=== PATIENT | male | born 1950 | race Caucasian/White ===

== ENCOUNTER → 2018-05-21 10:41 | Outpatient (CLI) | payer MEDICARE ==
[~2018-05-21] VITALS: Ht 182.9 cm; Wt 113.6 kg
--- NOTE | ~2018-05-21 | OP ---
PATIENT NAME: EMMETT WHEATLEY MEDICAL RECORD: [id number] :50 LOCATION:D.CAT ADMISSION DATE: SURGEON: GINA LEÓN MD DATE OF OPERATION: 05/21/2018 PROCEDURES: Left heart catheterization, selective coronary angiography, right femoral artery approach. CATHETERS: A 5-Libyan sheath, 5/4 left and right Paulina, 5/4 pig. The procedure was well tolerated. The patient was returned to the hernandez. Sheath was removed. ExoSeal device was placed. FINDINGS: Left ventriculography in 30-degree RODRIGUEZ view: Normal wall motion and normal systolic function. CORONARY ANATOMY: LEFT MAIN: Left main is free of disease. LAD: LAD has a tight stenosis of 90% at the takeoff of the first diagonal. CIRCUMFLEX: Fills for a short period of time and totally occluded. RIGHT CORONARY ARTERY: Fills to half way point and totally occluded. BYPASS GRAFTS: 1. Saphenous vein graft to right is widely patent throughout its course without evidence of postanastomotic stenosis. 2. Saphenous vein graft to circumflex is widely patent throughout its course without evidence of postanastomotic stenosis. 3. PABON to LAD: This PABON fills to about half-way point and becomes atretic vessel with no distal runoff. IMPRESSION: Recurrent angina secondary loss of PABON graft. PLAN: Intervention to LAD momentarily. DESCRIPTION OF PROCEDURE: A 5-Libyan sheath was exchanged to 6-Libyan sheath. An XB LAD 3.5 guiding catheter provided good guide catheter support followed by 300-cm Whisper wire was placed across the tightly occluded LAD down a portion of this vessel. Preformed balloon was 2.5 x 12 Esmeralda balloon up to 10 atmospheres. Next, stent deployed was a 3.0 x 18 [place] drug-eluting stent up to 14 atmospheres for 45 seconds. Final injection shows excellent resolution of tight 89% stenosis of the LAD. No significant residual. PIEDAD flow was 3 throughout the procedure. Integrilin was used during the case. Sheath was closed with ExoSeal device. TRANSINT:[id number] Voice Confirmation ID: [id number] DOCUMENT ID: [id number] OPERATIVE REPORT [id number] EMMETT WHEALTEY GINA LEÓN MD at 1305 CC: [id number] DICTATION DATE: 05/21/18 8591 FOUNDATION DIGGER: 05/21/18 1752 DEP CLI 05/21/18 [facility] [address] [facility] [place] [address]
--- NOTE | ~2018-05-21 | HEMODYNAMI ---
PATIENT:EMMETT WHEATLEY MEDICAL RECORD: [id number] : 50 LOCATION:D.CAT ADMISSION DATE: 05/21/18 Generatedon:05/21/201813:49 Patient name: EMMETT WHEATLEY Patient #: [id number] SSN: DO B: 1950 Date of study: 05/21/2018 Page: Of Hemodynamic Procedure Report Patient Data Patient Demographics Procedure consent was obtained First Name: EMMETT Gender: Male Last Name: DIONI : 1950 Patient #: [id number] Age: 67 year(s) Race: Unknown Additional ID: [id number] Contact details Address: [address] [place] [address] [place] State: [place] City: [place] Zip code: [address] Past Medical History Allergies Allergen Reaction Date Comments Reported Other allergy 05/21/2018 LISINOPRIL, ASPARTANE, METFORMIN, PAULETTE INHIBITORS Admission Admission Data Admission Date: 05/21/2018 Admission Time: 10:41 Height (in.): 70 BSA: 2.29 (m2) Height (cm.): 177.8 BMI: 35.87 (kg/m2) Weight (lbs.): 250 Weight (kg.): 113.4 Procedure Procedure Types Cath Procedure Diagnostic Procedure [facility] w/Coronaries Sedation Charges Moderate Sedation up to 15 minutes PCI Procedure Coronary Stent Coronary Stent Initial Procedure Description Procedure Date Procedure Date: 05/21/2018 Procedure Start Time: 13:25 Procedure End Time: 13:47 Procedure Staff Name Function Bruna Jung RT Monitor Faviola Echavarria RN Nurse Luis F Thompson RT Scrub Juan Panchal RN Director Marketing Analytics Zeke Howard MD Performing Physician Procedure Data Cath Procedure Fluoroscopy Diagnostic fluoroscopy Total fluoroscopy Time: 4.6 time: 4.6 min min Diagnostic fluoroscopy Total fluoroscopy dose: 333 dose: 333 mGy mGy Contrast Material Contrast Material Type Amount (ml) Isovue 300 126 Entry Location Entry Primary Successful Side Size Upsize Upsize Entry Closure Succes sful Closure Location (Fr) 1 (Fr) 2 (Fr) Remarks Device Remarks Femoral Right 5 Fr 6 Fr Exoseal artery Short Estimated blood loss: 10 ml Diagnostic catheters Device Type Used For End Catheter Placement MULTIPACK JL 4.0 5Fr Procedure catheter MULTIPACK 3DRC 5Fr Procedure catheter MULTIPACK Pigtail 5 Fr Procedure catheter Procedure Complications No complications Procedure Medications Medication Administration Route Dosage Oxygen etCO2 Nasal cannula 2 l/min Lidocaine 2% added to field 20 Heparin Flush Bag added to field 2 bags (1000units/500ml NS) 0.9% NaCl I.V. 100 ml/hr Versed I.V. 1 mg Fentanyl I.V. 50 mcg Versed I.V. 1 mg Fentanyl I.V. 50 mcg Heparin Bolus I.V. 4000 units Integrilin (Bolus I.V. 10.2 ml 2mg/ml) Fentanyl I.V. 50 mcg Plavix P.O. 600 mg Hemodynamics Rest BSA: 2.29 (m2) O2 Consumption: Estimated: 275.24 (ml/min) O2 Consumption indexed : Estimated:120.19 (ml/min/m) Heart Rate: 81 (bpm) Pressure Samples Time Site Value (mmHg) Purpose Heart Use Rate(bpm) 13:32 LV 155/19,24 Snapshot 100 13:32 AO 152/68(104) Pullback 98 Gradients Valve Time Site Site 2 Mean SEP/DFP Peak To Heart Use 1 (mmHg) (sec/min) Peak Rate (mmHg) (bpm) Aortic 13:32 LV AO 98 152/68(104) Snapshots Pre Cath Intra NCS Post Cath Vital Signs Time Heart Resp SPO2 etCO2 NIBP (mmHg) Rhythm Pain Sedation Rate (ipm) (%) (mmHg) Status Level (bpm) 13:02:50 95 14 98 35.9 171/83(113) NSR 0 (11) 10(A) , No pain 13:07:17 70 16 98 35.9 166/90(120) NSR 0 (11) 10(A) , No pain 13:11:41 91 12 97 38.1 163/94(125) NSR 0 (11) 10(A) , No pain 13:16:09 87 14 93 38.9 145/90(120) NSR 0 (11) 10(A) , No pain 13:21:37 92 15 95 23.2 148/86(126) NSR 0 (11) 9(A) , No pain 13:26:03 95 14 98 35.2 155/87(125) NSR 0 (11) 9(A) , No pain 13:30:31 99 15 98 33.7 160/80(134) NSR 0 (11) 9(A) , No pain 13:35:00 99 16 99 35.9 154/86(113) NSR 0 (11) 9(A) , No pain 13:39:22 68 14 98 32.9 142/86(129) NSR 0 (11) 9(A) , No pain 13:43:46 103 18 99 33.7 160/87(119) NSR 0 (11) 10(A) , No pain Medications Time Medication Route Dose Verified Delivered Reason Notes Effectiveness by by 13:04:54 Oxygen etCO2 2 Zeke Reneeie used for Nasal l/min St Efraín Echavarria RN procedure cannula 13:05:04 Lidocaine 2% added 20ml Zeke Bazziory for local to vial [facility] anesthetic field MD VALENZUELA 13:05:55 Heparin Flush added 2 Zeke Zeke used for Bag to bags [facility] procedure (1000units/500ml field MD VALENZUELA NS) 13:06:05 0.9% NaCl I.V. 100 Zeke Salmeron Per physician ml/hr St Efraín Echavarria RN, MD 13:18:15 Versed I.V. 1 mg Zeke Duranie for sedation St Efraín Echavarria RN, MD 13:18:22 Fentanyl I.V. 50 Zeke Duranie for sedation jaron Ann RN, MD 13:26:22 Versed I.V. 1 mg Zeke Salmeron for sedation St Efraín Echavarria RN, MD 13:26:27 Fentanyl I.V. 50 Zeke Duranie for sedation mcg [facility] Efraín Echavarria RN, MD 13:35:24 Heparin Bolus I.V. 4000 Zeke Duranie for verif ied units St Efraín Echavarria RN anticoagulation with dr MD klein 13:37:48 Integrilin I.V. 10.2 Zeke Salmeron for Waste d (Bolus 2mg/ml) ml St Efraín Echavarria RN antiplatelet 9.8 ml therapy of vial 13:40:17 Fentanyl I.V. 50 Zeke Duranie for sedation jaron Ann RN, MD 13:48:39 Plavix P.O. 600 [address] for mg [facility] Efraín Echavarria RN antiplatelet therapy Procedure Log Time Note 12:40:34 Juan Panchal RN sent for patient. Start room use. 12:51:35 Time tracking: Regular hours (M-F 7:00 - 5:00) 12:51:39 Plan of Care:Hemodynamics will remain stable., Cardiac rhythm will remain stable., Comfort level will be maintained., Respiratory function will remain adequate., Patient/ family verbilizes understanding of procedure., Procedure tolerated without complication., Recovers from procedure without complications.. 12:58:00 Patient received from Pre/Post Procedure Room to CCL 3 Alert and oriented. Tansferred to table in Supine position. 12:58:02 Warm blankets applied, and severiano hugger turned on for patient comfort. 12:58:02 Correct patient and procedure confirmed by team. 12:58:03 Signed procedure consent form obtained from patient. 12:58:04 ECG and BP/O2 sat monitors applied to patient. 13:01:24 Vital chart was started 13:04:54 Oxygen 2 l/min etCO2 Nasal cannula was administered by Faviola Ehcavarria RN; used for procedure; 13:05:04 Lidocaine 2% 20ml vial added to field was administered by Zeke Howard MD; for local anesthetic; 13:05:49 Baseline sample Acquired. 13:05:53 Rhythm: atrial fibrillation 13:05:54 Full Disclosure recording started 13:05:55 Heparin Flush Bag (1000units/500ml NS) 2 bags added to field was administered by Zeke Howard MD; used for procedure; 13:06:01 H&P Date Dictated: 04/29/2018 Within 30 days and on chart., H&P Addendum completed by physician on day of procedure. (MUST COMPLETE FOR ALL OUTPATIENTS). 13:06:05 0.9% NaCl 100 ml/hr I.V. was administered by Faviola Echavarria RN; Per physician; 13:10:05 Pre-procedure instructions explained to patient. 13:10:05 Pre-op teaching completed and patient verbalized understanding. 13:10:07 Family in patients room. 13:10:08 Patient NPO since Midnight. 13:10:30 Patient allergic to Other allergyLISINOPRIL, ASPARTANE, METFORMIN, PAULETTE INHIBITORS 13:10:32 Is the patient allergic to Iodine/contrast media? No. 13:10:33 Is patient on blood thinner?Yes 13:10:36 ACC The patient was administered the following blood thiners within the last 24 hours: ACCAspirin 13:10:39 Patient diabetic? Yes. 13:10:40 If diabetic: On Metformin? No 13:10:42 Previous problem with sedation/anesthesia? No ? 13:10:43 Snore? Yes 13:10:44 Sleep apnea? No 13:10:45 Deviated septum? No 13:10:45 Opens mouth fully? Yes 13:10:46 Sticks out tongue? Yes 13:10:48 Airway obstruction? Yes COPD 13:10:52 Dentures? Yes TIGHT 13:10:55 Pre procedure: right dorsailis pedis pulse 2+ Normal; easily identifiable; not easily obliterated 13:10:59 Patient pain scale 0/10 ?. 13:11:03 IV patent on arrival in left hand with 0.9% NaCl at [facility]. 13:11:15 Right groin area was prepped with chlora-prep and draped in sterile fashion 13:11:16 Alarms reviewed by R. N. 13:11:16 Sharps counted by scrub and verified by R.N. 13:11:19 Use device set Femoral Dx 13:11:20 ACIST Syringe (99106) opened to sterile field. 13:11:21 Bag Decanter (2002S) opened to sterile field. 13:11:22 ACIST Hand Control (77273) opened to sterile field. 13:11:22 ACIST Manifold (23755) opened to sterile field. 13:11:24 Tegaderm 4 x 4 (1626W) opened to sterile field. 13:11:26 Medline Cath Pack ([id number]) opened to sterile field. 13:11:26 DIAGNOSTIC WIRE .035 260cm J wire (629717) opened to sterile field. 13:11:28 DIAGNOSTIC Multipack 5Fr catheter set (XB1167) opened to sterile field. 13:11:31 SHEATH Prelude 5Fr 0.035 (GRN-0P-90-035) opened to sterile field. 13:12:07 Patient Height : 70 inches 13:12:11 Patient Weight : 250 lbs 13:17:58 --------ALL STOP TIME OUT------ 13:17:59 Final Timeout: patient, procedure, and site verified with staff and physician. All members of the team are in agreement. 13:18:01 Right groin site verified by team. 13:18:03 Physical assessment completed. ASA score P 2 - A patient with mild systemic disease as per Zeke Howard MD. 13:18:10 Sedation plan: IV Moderate Sedation Medication:Versed, Fentanyl 13:18:15 Versed 1 mg I.V. was administered by Faviola Echavarria RN; for sedation; 13:18:16 Zero performed for pressure channel P1 13:18:22 Fentanyl 50 mcg I.V. was administered by Faviola Echavarria RN; for sedation; 13:25:09 Procedure started. 13:25:17 Local anesthetic to right femoral artery with Lidocaine 2% by Zeke Howard MD.INITIAL ACCESS ONLY 13:26:18 A 5 Fr sheath was inserted into the Right Femoral artery 13::22 Versed 1 mg I.V. was administered by Faviola Echavarria RN; for sedation; 13::23 A MULTIPACK JL 4.0 5Fr catheter was advanced over the wire and used for Procedure. 13:26:27 Fentanyl 50 mcg I.V. was administered by Faviola Echavarria RN; for sedation; 13:27:57 LCA angiography performed. 13:28:01 Catheter removed. 13:28:08 A MULTIPACK 3DRC 5Fr catheter was advanced over the wire and used for Procedure. 13:29:20 RCA angiography performed. 13:29:36 SVG to RCA angiography performed. 13:29:57 SVG to Circ angiography performed. 13:31:15 PABON CLOSED 13:31:24 Catheter removed. 13:31:28 A MULTIPACK Pigtail 5 Fr catheter was advanced over the wire and used for Procedure. 13:32:00 LV gram done using RODRIGUEZ 13:32:04 Injector settings: Ml/sec: 10, Volume: 20, 13:32:37 LV hemodynamics recorded. 13:32:45 EF : 55 % 13:32:57 Catheter removed. 13:33:20 SHEATH 6FR Linneus (YMW684) opened to sterile field. 13:34:48 Sheath upsized to a 6 Fr Short. 13:34:53 INFLATOR Merit BasixCompak (JG8347) opened to sterile field. 13:34:57 WHISPER 300cm guide wire ([id number]) opened to sterile field. 13:35:02 GUIDE 6FR XBLAD 3.5 catheter ([id number]) opened to sterile field. 13:35:12 6 Fr XBLAD 3.5 guide catheter was inserted over the wire 13:35:24 Heparin Bolus 4000 units I.V. was administered by Faviola Echavarria RN; for anticoagulation; verified with dr klein 13:37:03 WHISPER 300 wire advanced. 13:37:48 Integrilin (Bolus 2mg/ml) 10.2 ml I.V. was administered by Faviola Echavarria RN; for antiplatelet therapy; Wasted 9.8 ml of vial 13:38:33 Wire advanced across lesion. 13:39:18 Inflate balloon Inflation number: 1 A EMERGE OTW 3.0 x 12 balloon ([id number]) was prepped and advanced across the Prox LAD, then inflated to 12 MIKE for 0:00 (min:sec). 13:39:37 Balloon removed over the wire. 13:40:17 Fentanyl 50 mcg I.V. was administered by Faviola Echavarria RN; for sedation; 13:42:01 Place stent Inflation Number: 2 A GLYNN OTW 3.0 x 18 stent ([id number]) was prepped and advanced across the Prox LAD. The stent was deployed at 14 MIKE for 0:15 (min:sec). 13:42:22 Stent catheter was removed intact over wire. 13:42:23 Wire removed. 13:42:23 Guide catheter removed. 13:42:46 EXOSEAL 6Fr (EX600) opened to sterile field. 13:43:15 Sheath removed intact; hemostasis achieved with Exoseal to the Right Femoral artery. 13:43:56 Procedure ended.(Physican Out) 13:44:52 Fluoroscopy time 04.60 minutes. 13:44:57 Fluoroscopy dose: 333 mGy 13:44:57 Flurop Dose total: 333 13:45:01 Contrast amount:Isovue 300 126ml. 13:45:02 Sharps counted by scrub and verified by R.N. 13:45:05 Post-op/insertion site Right Femoral artery dressed using a 4 x 4 and Tegaderm. 13:45:08 Post right femoral artery:stable, soft, clean and dry 13:45:15 Post-procedure physical assessment completed. ASA score P 3 - A patient with severe systemic disease as per Zeke Howard MD. 13:45:18 Post procedure rhythm: unchanged. 13:45:21 Estimated blood loss: 10 ml 13:45:22 Post procedure instruction explained to patient.Patient verbalizes understanding. 13:45:22 Patient needs reinforcement of post procedure teaching. 13:45:50 Procedure type changed to Cath procedure, Diagnostic procedure, LHC, LHC w/Coronaries, Sedation Charges, Moderate Sedation up to 15 minutes, PCI procedure, Coronary Stent, Coronary Stent Initial 13:46:55 Procedure and supply charges have been captured, reviewed, submitted and are correct. 13:46:58 Procedure Complication : No complications 13:47:00 Vital chart was stopped 13:47:00 See physician's report for complete and final results. 13:47:02 Report given to Pre/Post Procedure Room. 13:47:04 Patient transfered to Pre/Post Procedure Room with Bed. 13:47:06 Procedure ended. 13:47:06 Full Disclosure recording stopped 13:47:11 End room use (Document Last) 13:48:39 Plavix 600 mg P.O. was administered by Faviola Echavarria RN; for antiplatelet therapy; Intervention Summary Intervention Notes Time ActionType Lesion and Equipment Action# Pressure Duration Attributes Used 13:39:18 Inflate Prox LAD EMERGE OTW 1 12 00:00 balloon 3.0 x 12 balloon ([id number]) 13:42:01 Place stent Prox LAD GLYNN OTW 3.0 2 14 00:15 x 18 stent ([id number]) Device Usage Item Name Manufacture Quantity Catalog Number Hospital Part Current Minimal Lot# / Charge Number Stock Stock Serial# Code ACIST Syringe Acist 1 10449 739558 342821 129805 20 (43639) Medical [employer] Inc Bag Decanter Microtek 1 2001S 006146 12338 778273 5 (2001S) Medical Inc. ACIST Hand Acist 1 76317 163313 946616 137907 5 Control (15046) Medical Systems Inc ACIST Manifold Acist 1 14541 326266 823018 069441 5 (70217) Medical Systems Inc Tegaderm 4 x 4 3M 1 1626W 107638 403226 263610 5 (1626W) Medline Cath Medline 1 [id number] 943938 43639 059890 5 Pack ([id number]) DIAGNOSTIC WIRE St Bryant 1 926762 564835 826595 093590 30 .035 260cm J wire (307109) DIAGNOSTIC Cardinal 1 RA3932 887151 00818 758362 30 Multipack 5Fr Health catheter set (IL8201) SHEATH Prelude Merit 1 FHC-2T-44-035 314082 271882 884625 5 5Fr 0.035 Medical (KOZ-6R-44-035) MULTIPACK JL Cardinal 1 801690 5 4.0 5Fr Health catheter MULTIPACK 3DRC Cardinal 1 709551 5 5Fr catheter Health MULTIPACK Cardinal 1 400750 5 Pigtail 5 Fr Health catheter SHEATH 6FR Terumo 1 KMS275 207800 310958 569498 40 Linneus (ORF466) INFLATOR Merit Merit 1 KU8886 225506 544767 951970 15 BasixCompak Medical (CX6972) WHISPER 300cm Guzman 1 [id number] 169800 018500 937784 5 guide wire Vascular (5313598LP) GUIDE 6FR XBLAD Cardinal 1 [id number] 338849 150381 361020 10 3.5 catheter Health (93839670) EMERGE OTW 3.0 Mims 1 [id number] 171108 483062 877615 5 [id number] x 12 balloon Scientific ([id number]) GLYNN OTW 3.0 x Medtronic 1 [id number] 102078 6474817 678235 5 [id number] 18 stent ([id number]) EXOSEAL 6Fr Cardinal 1 EX600 172030 671142 323821 10 (EX600) Health Signature Audit [place] Stage Time Signature Unsigned Intra-Procedure 05/21/2018 Bruna Jung 1:49:25 PM RT(R) Signatures Monitor : Bruna Jung Signature : RT Date : Time : [facility] [address] [facility] [place] [address]
[~2018-05-21 10:41] MED LIST: BASAGLAR K100 UNIT/1 SC; BAYER CHEWABLE81 MG PO; BUMEX2 MG PO; CENTRUM MEN'S1 EACH PO; COREG 3.1253.125 MG PO; FISH OIL 1,0001 CA1 PO; FOLIC ACID0.8 MG PO; GLIMEPIRIDE2 MG PO; KLOR-CON M2020 MEQ PO; METHOTREXATE2.5 MG PO; PIOGLITAZONE HC30 MG PO; PLAVIX75 MG PO; VITAMIN D2000 UNIT PO
[2018-05-21 11:15] VITALS: BP 160/74; Ht 182.9 cm; Wt 113.6 kg
[2018-05-21 11:45] LABS: BASOPHILS 0.5 % (0-2); EOSINOPHILS 3.1 % (0-7); HEMATOCRIT 41.6 % (42.0-54.0); HEMOGLOBIN 13.8 g/dL (13.5-17.5); IMMATURE GRANULOCYTES 0.6 % (0-5); LYMPHOCYTES 19.6 % (15-50); MCH 32.3 pg (26.0-34.0); MCHC 33.2 g/dL (31.0-37.0); MCV 97.4 fL (80.0-100.0); MEAN PLATELET VOLUME 11.5 fL (7.4-10.4); MONOCYTES 10.8 % (2-11); NEUTROPHILS 65.4 % (40-80); PLATELET COUNT 183 10x3/uL (130-400); RBC 4.27 10x6/uL (4.20-6.10); RDW 15.8 % (11.5-14.5)
[2018-05-21 12:00] LABS: ANION GAP 16.3 mmol/L (8-16); CALCIUM 9.2 mg/dL (8.5-10.1); CREATININE - SERUM 1.2 mg/dL (0.6-1.3); POTASSIUM - SERUM 4.3 mmol/L (3.5-5.1)
== END | disposition home or self-care (01) ==
LOC: D.CATH 10:41
PROVIDERS: Internal Medicine Interventional Cardiology
DX: I25.119 Atherosclerotic heart disease of native coronary artery with unspecified angina pectoris (principal); I25.719 Atherosclerosis of autologous vein coronary artery bypass graft(s) with unspecified angina pectoris; Z01.812 Encounter for preprocedural laboratory examination
CPT/HCPCS: 93459; C9600

== ENCOUNTER → 2019-09-16 09:54 | Outpatient (CLI) | payer MEDICARE ==
[2018-05-21 11:15] VITALS: BMI 34.0
== END | disposition home or self-care (01) ==
LOC: D.HCCECHO 09:54
PROVIDERS: ATTEND Internal Medicine Interventional Cardiology
DX: I25.10 Atherosclerotic heart disease of native coronary artery without angina pectoris (principal)

== ENCOUNTER → 2020-10-26 09:01 | Outpatient (CLI) | payer MEDICARE ==
[2018-05-21 11:15] VITALS: BMI 34.0
--- NOTE | ~2020-10-26 | EC ---
PATIENT:EMMETT WHEATLEY DATE OF SERVICE: 10/26/20 SEX: M MEDICAL RECORD: [id number] DATE OF : 50 LOCATION:D[facility] AGE OF PATIENT: 70 ADMISSION DATE: 10/26/20 REFERRING PHYSICIAN: INTERPRETING PHYSICIAN: GINA LEÓN MD ECHOCARDIOGRAM REPORT ECHO CHARGES 4 ECHO COMPLETE Date: 10/26/20 CLINICAL DIAGNOSIS: CAD/ ASSESS EF AND VALVES RECENT BRADYCARDIA ECHOCARDIOGRAPHIC MEASUREMENTS (adult normal given) AC root (d.<3.7cm) 4.1 cm LV Septum d (<1.2 cm> 1.3 cm Valve Excursion 2.3 cm LV Septum (systole) 1.7 cm Left Atria (s.<4.0cm> 4.4 cm LVPW d(<1.2cm) 1.6 cm RV (d.<2.3cm) 4.1 cm LVPW (sytole) 1.8 cm LV diastole(<5.6CM) 5.3 cm MV E-F(>70mm/sec) cm LV systole 3.3 cm LVOT Diameter 1.7 cm MV exc.(>10mm) cm Est.ejection fraction (50-75%) % DOPPLER: LVIT cm/sec A 111.0cm/sec E 134.0 cm/sec LA cm/sec RVSP 18 mmHg LVOT 108 cm/sec AOP1/2T m/s Asc. Ao 139 cm/sec RVOT 79 cm/sec RA cm/sec PA 124 cm/sec AV Gradient Peak 7.77 mmHg AV Mean 3.48 mmHg AV Area 2.1 cm MV Gradient Peak 14.46mmHg MV Mean 3.35 mmHg MV Area cm COMMENTS: Lobsterman: 2 GELY ZUNIGA Black Oxide Coating Equipment Tender: 3 Dr. Garcia TAPE# PACS Pericardial Effusion N DATE OF SERVICE: 10/26/2020 Adequate 2D, color-flow imaging, spectral Doppler, and M-Mode. FINDINGS: LVH is present. LV internal dimensions are normal. Wall motion is normal. EF is greater than or equal to 55%. Aortic valve is tricuspid. No evidence of stenosis by Doppler interrogation. Left atrium is dilated at 4.4 cm. Mitral valve shows no prolapse. Trace MR. Right side is grossly normal. Trace TR.. ECHOCARDIOGRAM REPORT [id number] EMMETT WHEATLEY TRANSINT:[id number] Voice Confirmation ID: [id number] DOCUMENT ID: [id number] GINA LEÓN MD CC: [id number] DICTATION DATE: 10/26/201458 INFANTRY OFFICER: 10/26/202100 [address] [place] [address]
== END | disposition home or self-care (01) ==
LOC: D.HCCECHO 09:00
PROVIDERS: ATTEND Internal Medicine Interventional Cardiology
DX: I25.10 Atherosclerotic heart disease of native coronary artery without angina pectoris (principal)

== ENCOUNTER 2021-01-17 12:08 | Observation (INO) | payer MEDICARE ==
[~2021-01-17] VITALS: Ht 182.9 cm; Wt 117.9 kg
[2021-01-17 13:37] LABS: BASOPHILS 0.4 % (0-2); EOSINOPHILS 0.4 % (0-7); HEMATOCRIT 39.9 % (42.0-54.0); LYMPHOCYTES 10.4 % (15-50); MCH 30.9 pg (26.0-34.0); MCHC 32.7 g/dL (31.0-37.0); MCV 94.7 fL (80.0-100.0); MEAN PLATELET VOLUME 9.6 fL (7.4-10.4); MONOCYTES 8.9 % (2-11); NEUTROPHILS 79.9 % (40-80); PLATELET COUNT 166 10x3/uL (130-400); RBC 4.21 10x6/uL (4.20-6.10); RDW 16.9 % (11.5-14.5); WBC 8.8 10x3/uL (4.8-10.8)
[2021-01-17 13:44] LABS: CALC OSMOLALITY 285 mosm/kg (275-300); CALCIUM 8.9 mg/dL (8.5-10.1); CHLORIDE - SERUM 105 mmol/L (98-107); CREATININE - SERUM 1.5 mg/dL (0.6-1.3); GLUCOSE 156 mg/dL (74-106); POTASSIUM - SERUM 3.8 mmol/L (3.5-5.1); SODIUM 141 mmol/L (136-145); UREA NITROGEN 17 mg/dL (7-18); eGFR NON AFRICAN AMERICAN 49 mL/min (90-120)
[2021-01-17 14:18] LABS: ALBUMIN 3.8 g/dL (3.4-5.0); ALKALINE PHOSPHATASE 48 U/L (30-120); ALT (SGPT) 19 U/L (10-68); AMYLASE - SERUM 121 U/L (25-115); BILIRUBIN - TOTAL 0.68 mg/dL (0.2-1.3); CKMB 1.4 U/L (0.0-3.6); CREATINE KINASE 94 UL (21-232); LIPASE 849 U/L (73-393); MAGNESIUM - SERUM 1.9 mg/dL (1.8-2.4); PRO BNP 2556 pg/mL (0-125); PROTEIN - SERUM 7.4 g/dL (6.4-8.2); TROPONIN-I < 0.017 ng/mL (0.000-0.060)
[2021-01-17 14:53] LABS: BILIRUBIN NEGATIVE (NEGATIVE); KETONE 2+ mg/dL (< 1+); NITRITE NEGATIVE (NEGATIVE); PH 5.5 (5.0-8.0); UROBILINOGEN NORMAL mg/dL (< 2); WHITE CELLS - URINE 1 HPF (0-1)
[2021-01-17 15:07] LABS: UDS - AMPHET NEGATIVE QUAL (NEGATIVE); UDS - BARB NEGATIVE QUAL (NEGATIVE); UDS - BENZO NEGATIVE QUAL (NEGATIVE); UDS - COCAINE NEGATIVE QUAL (NEGATIVE); UDS - OPIATE NEGATIVE QUAL (NEGATIVE); UDS - PCP NEGATIVE QUAL (NEGATIVE); UDS - THC NEGATIVE QUAL (NEGATIVE)
[2021-01-17 18:15] VITALS: BP 166/51
[2021-01-17 18:26] LABS: CKMB 0.8 U/L (0.0-3.6); CREATINE KINASE 66 UL (21-232); TROPONIN-I 0.022 ng/mL (0.000-0.060)
--- NOTE | 2021-01-17 19:09 | NUR ---
Report received from Emeterio JANE.
--- NOTE | 2021-01-17 20:54 | NUR ---
Possible changes to cardiac rythym noted on monitor. Will obtain EKG for evaluation.
[2021-01-17 21:03] VITALS: BP 182/107
[2021-01-17 22:00] VITALS: BP 179/52
[2021-01-17 23:00] VITALS: BP 154/40
[2021-01-18] VITALS (9 sets, daily range): BP systolic 126–176; BP diastolic 42–64; Ht 182.9 cm; Wt 117.9 kg
[2021-01-18 01:32] LABS: CKMB 1.4 U/L (0.0-3.6); CREATINE KINASE 109 UL (21-232); TROPONIN-I 0.025 ng/mL (0.000-0.060)
[2021-01-18 06:24] LABS: BASOPHILS 0.5 % (0-2); EOSINOPHILS 3.6 % (0-7); HEMATOCRIT 37.2 % (42.0-54.0); HEMOGLOBIN 12.2 g/dL (13.5-17.5); LYMPHOCYTES 27.7 % (15-50); MCHC 32.7 g/dL (31.0-37.0); MCV 94.6 fL (80.0-100.0); MEAN PLATELET VOLUME 9.7 fL (7.4-10.4); MONOCYTES 7.1 % (2-11); NEUTROPHILS 61.1 % (40-80); PLATELET COUNT 164 10x3/uL (130-400); RBC 3.93 10x6/uL (4.20-6.10); RDW 17.2 % (11.5-14.5)
[2021-01-18 06:47] LABS: ALBUMIN 3.3 g/dL (3.4-5.0); BILIRUBIN - TOTAL 0.74 mg/dL (0.2-1.3); CALCIUM 8.3 mg/dL (8.5-10.1); CARBON DIOXIDE 27.2 mmol/L (21.0-32.0); CREATININE - SERUM 1.3 mg/dL (0.6-1.3); POTASSIUM - SERUM 4.2 mmol/L (3.5-5.1); PROTEIN - SERUM 6.4 g/dL (6.4-8.2); THYROID STIMULATING HORMONE 3.25 uIU/mL (0.36-3.74)
--- NOTE | 2021-01-18 13:44 | NUR ---
RECEIVED REPORT FROM BUCK ROGER
== END 2021-01-18 17:53 | disposition home or self-care (01) ==
LOC: D.ER 12:08 → D.EDHOLD 16:01 → OBSVTIME 17:51 → D.EDHOLD 01-18 17:53
PROVIDERS: Emergency Medicine; ADMIT Family Medicine; ATTEND Family Medicine
DX: K85.90 Acute pancreatitis without necrosis or infection, unspecified (principal); R10.13 Epigastric pain; I11.0 Hypertensive heart disease with heart failure; I50.9 Heart failure, unspecified; J44.9 Chronic obstructive pulmonary disease, unspecified; Z79.82 Long term (current) use of aspirin; Z79.84 Long term (current) use of oral hypoglycemic drugs; E11.65 Type 2 diabetes mellitus with hyperglycemia; R00.1 Bradycardia, unspecified; R79.89 Other specified abnormal findings of blood chemistry; R13.10 Dysphagia, unspecified